=== PATIENT | male | born 1950 | race Caucasian/White ===

== ENCOUNTER 2022-10-07 16:56 | Outpatient (CLI) | payer OTHER | END 2022-10-07 23:59 | disposition critical access hospital (66) | LOC: EMS 16:56 | DX: T63.461A Toxic effect of venom of wasps, accidental (unintentional), initial encounter (principal) | CPT/HCPCS: A0425; A0427 ==

== ENCOUNTER 2022-10-07 17:22 | Emergency (ER) | payer OTHER ==
[2022-10-07] MEDS ORDERED: LORazepam 2 MG/ML VIAL IVP STA (17:24)
[2022-10-07] MEDS ORDERED: DEXAMETHASONE 10 MG/ML VIAL IVP ONE (17:24)
[2022-10-07 18:46] VITALS: BP 131/86; O2SAT 94
[2022-10-07] MEDS ORDERED: ACETAMINOPHEN/CODEINE 300 MG/30 MG TABLET PO STA (19:11)
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
== END 2022-10-07 19:38 | disposition home or self-care (01) ==
LOC: ED 17:22
DX: T63.461A Toxic effect of venom of wasps, accidental (unintentional), initial encounter (principal); I10 Essential (primary) hypertension; E78.00 Pure hypercholesterolemia, unspecified
CPT/HCPCS: 96374; 99283; 99284; A9270; J2060